=== PATIENT | female | born 1995 | race Caucasian/White ===

== ENCOUNTER → 2016-07-21 | Outpatient (CLI) | payer OTHER ==
[~2016-07-21] MED LIST: BCPILLS PO; LORA-741 PO
[2016-07-26 03:24] LABS: CHLAMYDIA TRACH RNA*** NOT DETECTED (NOT DETECTED); GC (NEIS GONORRHOEAE)RNA** NOT DETECTED (NOT DETECTED)
== END | disposition home or self-care (01) ==
LOC: C.LABSPEC 18:11
PROVIDERS: ATTEND Obstetrics & Gynecology
DX: N76.0 Acute vaginitis (principal)

== ENCOUNTER 2016-10-17 13:19 | Emergency (ER) | payer OTHER ==
[~2016-10-17] VITALS: Ht 162.6 cm; Wt 64.6 kg
[2016-10-17 13:23] VITALS: Ht 162.6 cm; Wt 64.6 kg
[2016-10-17] MEDS ORDERED: LORAZEPAM 0.5 MG TAB SL STA (13:42)
[2016-10-17 13:51] LABS: BASO % 0.1 %; BASO ABS # 0.01 K/uL (0-0.2); COMPLETE YES; EOS % 0.1 %; HEMATOCRIT 47.2 % (37-47); IG% 0.2 %; LYMPH % 12.4 %; LYMPH ABS # 1.26 K/uL (1.2-3.4); MEAN CELL VOLUME 88.2 fL (80-100); MEAN CORPUSCULAR HEMOGLOBIN 30.5 pg (25-34); MEAN CORPUSCULAR HGB CONC 34.5 g/dl (32-36); MEAN PLATELET VOLUME 9.5 fL (7.4-10.4); MONO % 4.4 %; NEUT % 82.8 %; PLATELET COUNT 331 K/uL (130-400); RED BLOOD COUNT 5.35 M/uL (4.2-5.4); WHITE BLOOD COUNT 10.17 K/uL (4.8-10.8)
[2016-10-17 14:02] LABS: ALT/SGPT 25 U/L (12-78); AST/SGOT 19 U/L (15-37); BLOOD UREA NITROGEN 7 mg/dl (7-18); CALCIUM 9.4 mg/dl (8.5-10.1); CARBON DIOXIDE 24 mmol/L (21-32); CHLORIDE 107 mmol/L (98-107); CREATININE 0.77 mg/dl (0.60-1.20); GLUCOSE 106 mg/dl (70-99); POTASSIUM 3.8 mmol/L (3.5-5.1); SODIUM 140 mmol/L (136-145)
[2016-10-17 14:03] VITALS: TEMP 37
[2016-10-17 14:13] LABS: ALB/GLOB RATIO 1.1 (0.9-2); ALKALINE PHOSPHATASE 65 U/L (45-117)
[2016-10-17] MEDS ORDERED: BCPILLS PO (14:14)
--- NOTE | 2016-10-17 14:18 | DIAGNOSTIC IMAGING REPORT ---
CHEST ONE VIEW PORTABLE CLINICAL HISTORY: sob, tachycardia ATYPICAL CHEST PAIN COMPARISON STUDY: No previous studies for comparison. FINDINGS: The cardiac and mediastinal contours are normal. There is no evidence of focal pulmonary consolidation. There is no evidence of failure. No pleural effusions are visualized.[ IMPRESSION: No active disease in the chest. Electronically signed by: Franko Merritt M.D. 10/17/2016 2:16 PM Dictated Date/Time: 10/17/2016 2:16 PM
[2016-10-17 15:15] LABS: PREG INTERNAL NEGATIVE QC NEG CLEAR BACKGROUND; PREG INTERNAL POSITIVE QC POS CONTROL LINE
[2016-10-17] MEDS ORDERED: LORA-741 PO (15:33)
--- NOTE | 2016-10-17 15:36 | EMERGENCY ROOM VISIT NOTE ---
History First contact with patient: 13:31 Chief Complaint: CHEST PAIN Stated Complaint: CHEST PAIN,SOB,DIZZINESS,NAUSEA History of Present Illness The patient is a 20 year old female who presents to the Emergency Room with complaints of chest pain, shortness of breath and palpitations. The patient states that approximately 3 weeks ago, she had an episode where it "felt like someone was sitting on her chest." She states that she felt very shaky and like she was going to pass out. She was seen at [facility] after this incident and states that she had a chest x-ray and a blood test which checked for blood clots and these were both negative. She was told that her symptoms were likely related to anxiety. She states that 2 days ago, she had an episode where her right arm felt slightly numb for a few minutes, but this resolved. The patient states that since last night, her heart has been racing intermittently and she is feeling very anxious. She states that she is very nervous that could be something wrong, because one of her friends had similar symptoms and of a pulmonary embolism. The patient does take control pills. She does not smoke and denies any recent long trips. She denies any family history of blood clots or cardiac disorders, but does state there is a strong family history of anxiety and panic attacks. Review of Systems A complete 10-point Review of Systems was discussed with the patient, with pertinent positives and negatives listed in the History of Present Illness. All remaining Review of Systems questions can be considered negative unless otherwise specified. Social History Smoking Status: Never Smoker Current/Historical Medications Scheduled Control Pills ( Control Pills), 1 TAB PO DAILY Scheduled PRN Lorazepam (Ativan), 1-2 TAB PO Q8 PRN for Anxiety Allergies Coded Allergies: No Known Allergies (Unverified , 10/17/16) Physical Exam Vital Signs Date Time Temp Pulse Resp B/P Pulse Ox O2 Delivery O2 Flow Rate FiO2 10/17/16 15:46 83 18 125/80 98 10/17/16 14:09 88 10/17/16 14:03 37.0 97 16 133/78 97 Room Air 10/17/16 13:23 37.1 138 20 140/95 98 Room Air 10/17/16 13:19 97 Room Air Physical Exam VITALS: Vitals are noted on the nurse's note and reviewed by myself. Vital signs stable. Patient is tachycardic. GENERAL: This is a 20-year-old female, anxious appearing, nondiaphoretic, well- developed well-nourished. SKIN: Capillary reflex less than 2 seconds. HEENT: Normocephalic. PERRLA. EOMI. Nares patent. Mucous membranes moist. Neck is supple without nuchal rigidity. HEART: Tachycardic, regular rhythm without murmurs gallops or rubs. LUNGS: Clear to auscultation bilaterally without wheezes, rales or rhonchi. No retractions or accessory muscle use. ABDOMEN: Positive bowel sounds x 4. Soft, nontender to palpation. NEURO: Patient was alert and oriented to person place and time. Medical Decision & Procedures ER Provider Diagnostic Interpretation: CHEST ONE VIEW PORTABLE CLINICAL HISTORY: sob, tachycardia ATYPICAL CHEST PAIN COMPARISON STUDY: No previous studies for comparison. FINDINGS: The cardiac and mediastinal contours are normal. There is no evidence of focal pulmonary consolidation. There is no evidence of failure. No pleural effusions are visualized.[ IMPRESSION: No active disease in the chest. Laboratory Results 10/17/16 13:35 Red Blood Count 5.35, Mean Corpuscular Volume 88.2, Mean Corpuscular Hemoglobin 30.5, Mean Corpuscular Hemoglobin Concent 34.5, Mean Platelet Volume 9.5, Neutrophils (%) (Auto) 82.8, Lymphocytes (%) (Auto) 12.4, Monocytes (%) (Auto) 4.4, Eosinophils (%) (Auto) 0.1, Basophils (%) (Auto) 0.1, Neutrophils # (Auto) 8.42, Lymphocytes # (Auto) 1.26, Monocytes # (Auto) 0.45, Eosinophils # (Auto) 0.01, Basophils # (Auto) 0.01 10/17/16 13:35 Test 10/17/16 13:20 10/17/16 13:35 Human Chorionic Gonadotropin, Qual NEG (NEG) White Blood Count 10.17 K/uL (4.8-10.8) Red Blood Count 5.35 M/uL (4.2-5.4) Hemoglobin 16.3 g/dL (12.0-16.0) Hematocrit 47.2 % (37-47) Mean Corpuscular Volume 88.2 fL (80-100) Mean Corpuscular Hemoglobin 30.5 pg (25-34) Mean Corpuscular Hemoglobin Concent 34.5 g/dl (32-36) Platelet Count 331 K/uL (130-400) Mean Platelet Volume 9.5 fL (7.4-10.4) Neutrophils (%) (Auto) 82.8 % Lymphocytes (%) (Auto) 12.4 % Monocytes (%) (Auto) 4.4 % Eosinophils (%) (Auto) 0.1 % Basophils (%) (Auto) 0.1 % Neutrophils # (Auto) 8.42 K/uL (1.4-6.5) Lymphocytes # (Auto) 1.26 K/uL (1.2-3.4) Monocytes # (Auto) 0.45 K/uL (0.11-0.59) Eosinophils # (Auto) 0.01 K/uL (0-0.5) Basophils # (Auto) 0.01 K/uL (0-0.2) RDW Standard Deviation 39.1 fL (36.4-46.3) RDW Coefficient of Variation 12.3 % (11.5-14.5) Immature Granulocyte % (Auto) 0.2 % Immature Granulocyte # (Auto) 0.02 K/uL (0.00-0.02) D-Dimer < 190 ug/L FEU (0-500) Anion Gap 9.0 mmol/L (3-11) Est Creatinine Clear Calc Drug Dose 100.7 ml/min Estimated GFR () 128.8 Estimated GFR (Non- 111.1 BUN/Creatinine Ratio 9.0 (10-20) Calcium Level 9.4 mg/dl (8.5-10.1) Total Bilirubin 0.4 mg/dl (0.2-1) Aspartate Amino Transf (AST/SGOT) 19 U/L (15-37) Alanine Aminotransferase (ALT/SGPT) 25 U/L (12-78) Alkaline Phosphatase 65 U/L (45-117) Troponin I < 0.015 ng/ml (0-0.045) Total Protein 8.5 gm/dl (6.4-8.2) Albumin 4.5 gm/dl (3.4-5.0) Globulin 4.0 gm/dl (2.5-4.0) Albumin/Globulin Ratio 1.1 (0.9-2) Thyroid Stimulating Hormone (TSH) 1.900 uIu/ml (0.300-4.500) Medications Administered Medications (Trade) Dose Ordered Sig/Shara Route Start Time Stop Time Status Last Admin Dose Admin Lorazepam (Ativan Tab) 0.5 mg NOW STAT SL 10/17/16 13:42 10/17/16 13:44 DC 10/17/16 13:48 0.5 MG ECG Indication: palpitations Rate (beats per minute): 139 Rhythm: sinus tachycardia Findings: no acute ischemic change, no ectopy Comparison ECG Date: no prior available ED Course The patient was evaluated as above. Labs were drawn and IV access was obtained. The patient was placed on the manager oracle and monitored throughout the duration of her stay. Patient was medicated with 0.5 mg Ativan sublingually. Chest x-ray was performed and read by radiology as above. Patient was reevaluated and felt much better after the Ativan. Her heart rate had decreased to 90 bpm on the monitor. Discharge instructions were reviewed with the patient. The patient verbalized understanding of my assessment and treatment plan and was discharged home in good condition. Medical Decision Differential diagnosis includes arrhythmia, thyroid disorder, acute coronary syndrome, pulmonary embolism, pneumothorax, pericarditis, myocarditis, endocarditis, anxiety, musculoskeletal pain, GERD, costochondritis, pneumonia, among others. The patient is a 20-year-old female who presents today complaining of palpitations and shortness of breath. Labs revealed no leukocytosis, anemia or concerning electrolyte abnormality. D-dimer was not elevated. Troponin was not elevated. TSH was within normal limits. Urine was negative. The EKG shows a sinus tachycardia. After receiving 0.5 mg Ativan, the patient felt much better and her heart rate had decreased to be within normal limits. I do feel her symptoms are likely anxiety related. The patient does admit to feeling very anxious and states she is especially anxious because of her friend who of a pulmonary embolism. The patient was reassured regarding today's findings. She was given a short course of Ativan to take at home on an as- needed basis for anxiety. I do feel she would benefit from a daily medication such as an SSRI and recommended that she follow-up with [facility] or her own PCP for this. She was instructed to return here for any new /concerning or worsening of her current symptoms. She verbalized understanding of this assessment and treatment plan. The patient's case was reviewed with Dr. Avery, ED attending physician, who agreed with my assessment and treatment plan. Based on the patient's presentation and work up, I feel the patient is stable for outpatient treatment. The patient was educated to the emergency department for any worsening of their current condition or new/concerning symptoms. Impression Primary Impression: Anxiety Departure Information Dispostion Home / Self-Care Condition GOOD Prescriptions Lorazepam (ATIVAN) 0.5 Mg Tab 1-2 TAB PO Q8 Y for Anxiety, #15 TAB Prov: Karol Bueno ., CAPO 10/17/16 Referrals [facility] (PCP) Patient Instructions My [facility] Additional Instructions Take the Ativan as needed for anxiety. You may take 1-2 tablets up to 3 times a day as needed. Do not drive or drink alcohol while taking this medication. Follow-up with [facility] services or your primary care provider for further evaluation of your symptoms. Return to the emergency department with any worsening or new/concerning symptoms.
[2016-10-17 15:46] VITALS: BP 125/80; PULSE 83; O2SAT 98
== END 2016-10-17 15:48 | disposition home or self-care (01) ==
LOC: C.EDB 13:22 → C.EDA 15:48
DX: F41.9 Anxiety disorder, unspecified (principal); R07.9 Chest pain, unspecified; R42 Dizziness and giddiness; R11.0 Nausea; R06.02 Shortness of breath

== ENCOUNTER → 2017-04-05 | Outpatient (CLI) | payer OTHER ==
[~2017-04-05] MED LIST changes: -LORA-741 PO
== END | disposition home or self-care (01) ==
LOC: C.LABSPEC 14:09
PROVIDERS: ATTEND Physician Assistant
DX: N89.8 Other specified noninflammatory disorders of vagina (principal)

== ENCOUNTER → 2017-05-21 | Outpatient (CLI) | payer OTHER | END | disposition home or self-care (01) | LOC: C.PAPS 14:04 | PROVIDERS: ATTEND Obstetrics & Gynecology | DX: Z12.4 Encounter for screening for malignant neoplasm of cervix (principal) ==